=== PATIENT | female | born 1970 | race Two or more races ===

== ENCOUNTER 2022-03-20 16:49 | Emergency (ER) | payer MEDICAID, OTHER ==
[~2022-03-20] VITALS: Ht 162.6 cm; Wt 83.5 kg
--- NOTE | 2022-03-20 19:05 | NUR ---
1702 PT C/O VOMITED 3X TODAY. TOLERATING R/A WELL WITH NO RESP DISTRESS
[2022-03-20] MEDS ORDERED: IBUPROFEN 600 MG TABLET ONE (19:28)
[2022-03-20] MEDS ORDERED: IBUPROFEN 600 MG TABLET PO ONE (19:30)
--- NOTE | 2022-03-20 19:41 | NUR ---
OUTREACH PROFESSIONAL AT PT'S BEDSIDE
[2022-03-20] MEDS ORDERED: ONDA4TAB5 PO (21:10)
[2022-03-20] MEDS ORDERED: IBUP-1955 PO (21:10)
--- NOTE | 2022-03-20 21:15 | NUR ---
Patient discharged to home in stable condition. Written and verbal after care instructions given. Patient verbalizes understanding of instruction.
[2022-03-20 21:21] VITALS: BP 130/75
== END 2022-03-20 21:15 | disposition home or self-care (01) ==
LOC: ER 16:53
DX: B34.9 Viral infection, unspecified (principal); R11.2 Nausea with vomiting, unspecified; Z20.822 Contact with and (suspected) exposure to COVID-19; R01.1 Cardiac murmur, unspecified
CPT/HCPCS: 99284; 71045; 87804; U0003; C9803